=== PATIENT | male | born 1970 | race African-American/Black ===

== ENCOUNTER 2016-10-03 14:19 | Inpatient (IN) | payer OTHER ==
--- NOTE | ~2016-10-03 | DS ---
Discharge Summary [facility] [address] [facility] [place]. [address] NAME: JOSSY LUO : 66 STATUS : DIS IN PAT#: [id number] AGE: 46 ADM/REG DATE : 10/03/16 MR#: [id number] REPORT SERV DATE: 10/27/16 DICTATED BY: KEY BROWNLEE DATE: 10/26/16 REPORT STATUS : Draft TRANSCRIBED BY: MODKorin DATE: 10/26/16 Data Collection from hospitalization DISCHARGE DIAGNOSES: 1. Abdominal pain. 2. Ischemic bowel status post ileum resection. 3. End-stage renal disease. 4. Rheumatoid arthritis. 5. Hypertension. 6. Seizure disorder. 7. History of failed kidney transplant. CONSULTATION: Dr. Sang Ojeda III. PROCEDURES PERFORMED: 1. Exploratory laparotomy and fluorescein/Wood lamp angiography, resection 30 cm of jejunum, 10/04/2016. 2. CT scan of the abdomen and pelvis without contrast, 10/03/2016. 3. CTA of the abdomen and pelvis, 10/04/2016. 4. CT scan of the abdomen without contrast, 10/12/2016. PATHOLOGY: Small bowel jejunum segmental resection-multiple noncontiguous areas of ischemic necrosis. Two lymph nodes-edematous with no hyperplasia or granuloma. DISCHARGE MEDICATION: Zyloprim 100 mg daily, Norvasc 10 mg daily, Ecotrin 325 mg daily, PhosLo 1334 mg with meals, Catapres 0.2 mg twice a day, Lomotil 2.5 mg three times a day as needed, hydralazine 100 mg twice a day, Kent 5/325 one to two tablets every six hours as needed, Zestril 40 mg daily, Percocet one tablet three times a day as needed, Protonix 40 mg daily. CONDITION AT DISCHARGE: Stable. DISPOSITION: The patient was discharged home on a renal low-residue diet with activities as instructed. He would follow up with me if needed. He would follow up for hemodialysis Tuesday as scheduled. HOSPITAL COURSE: This is a 46-year-old man, who has end-stage renal disease and dialyzes on Mondays, Wednesdays, and Fridays. He has a history of juvenile rheumatoid arthritis, FSGS, chronic immune suppression with failed renal transplant. He has a history of ischemic colitis with juvenile infarction and jejunostomy by Dr. Sang Ojeda in 2015. He presented to the hospital initially with nausea and vomiting, which began Tuesday prior to admission, over one week ago. He said that he had been vomiting approximately four times a day and having diarrhea approximately three times per day. On the day of this admission, he began running fevers up to 102 at home and then developed abdominal pain. He therefore presented to the emergency department. In the emergency department, his CT scan of the abdomen reveals finding of diffusely thickened segment of jejunum with stranding in the mesentery suspicious for Crohn disease. Procalcitonin level was elevated at 2.9. He was admitted to the hospital at this time for further evaluation and treatment. Discharge Summary [id number] [place]. [address] NAME: JOSSY LUO : 66 STATUS : DIS IN PAT#: [id number] AGE: 46 ADM/REG DATE : 10/03/16 MR#: [id number] REPORT SERV DATE: 10/27/16 DICTATED BY: KEY BROWNLEE DATE: 10/26/16 REPORT STATUS : Draft TRANSCRIBED BY: ANNETTA DATE: 10/26/16 Upon admission, he was placed in the IMCU. IV antibiotics, pain, and nausea medications were provided. A surgical consult was requested. Dialysis would be performed if stable per his routine. The following day, he was seen by Dr. Sang Ojeda III. The patient had a one-week history of progressive abdominal pain with nausea, vomiting, and persistent unbearable abdominal pain in the middle of his abdomen. He said he had had a small bowel movement about two days prior to this admission. His pain was requiring large amounts of narcotics for control. His CT scans were reviewed. It was felt that the patient had an acute surgical abdomen, probably related to ischemic bowel disease versus a small closed loop obstruction, although segmental ischemia like he had in the past was the most likely etiology. Treatment options were discussed and it was elected to proceed with surgical intervention. He also had a CTA of the abdomen and pelvis performed. He was taken to the operating room by Dr. Sang Ojeda III, where he underwent the above-mentioned procedure. He tolerated this well and there were no complications. On postop day one, he was in moderate distress secondary to pain. He had some rhonchi in his lungs without dyspnea. One of two blood cultures revealed gram-positive cocci. Vancomycin was added. Pain medications were adjusted. IV fluids were adjusted. Flagyl and Levaquin were continued. On the , he had no dyspnea. His abdomen was soft. He did have some distention. Magnesium supplementation was given. He was transfused two units of packed red blood cells. Levaquin was changed to cefepime. Supportive care continued. He was passing flatus. He did have an ileus, which was felt to be resolving. Hemoglobin had increased after his transfusion. He had minimal NG tube output. Liquids were started. Subcutaneous heparin was being provided. The NG tube was removed. On the , he continued to do well. He complained of loose stools. He was now off antibiotics. Hemodialysis therapy continued. On 10/09/2016, he continued to do well. He was evaluated by Occupational and Physical Therapy. His diarrhea had resolved. Pathology results were reviewed. On the , he had the sudden onset of abdominal pain that was severe. He was finally relieved with medication. He was still passing flatus. CT scan of the abdomen without contrast was performed. Discharge planning was started. He continued to undergo hemodialysis. He had been moved to the MICU because of his abdominal pain. His CT scan had suggested small bowel obstruction. C difficile study had been negative. On 10/13/2016, he said he felt well. He was eating okay. He did have a bowel movement. He was going to be transferred to the floor. He was evaluated by Physical Therapy. The next day, discharge planning continued. He had no complaints of pain. He still had some diarrhea. He was tolerating oral intake. On 10/15/2016, he had no nausea, vomiting, or abdominal pain. He had no edema. Discharge instructions were given. Due to his improved and stable condition, he was discharged home with the above-stated instructions. Information collected by: Magdalena Noel I submit the above information as my discharge summary. LAURIE/ANNETTA Key Brownlee M.D. Discharge Summary [address] [address] NAME: JOSSY LUO : 66 STATUS : DIS IN PAT#: [id number] AGE: 46 ADM/REG DATE : 10/03/16 MR#: [id number] REPORT SERV DATE: 10/27/16 DICTATED BY: KEY BROWNLEE DATE: 10/26/16 REPORT STATUS : Draft TRANSCRIBED BY: ANNETTA DATE: 10/26/16 / [id number] CC: MD Sang Cagle III, M.D.
--- NOTE | ~2016-10-03 | HP ---
History And Physical [address] [place]. [address] NAME: JOSSY LUO : 66 STATUS : ADM IN [facility]#: [id number] AGE: 46 ADM/REG DATE : 10/03/16 MR#: [id number] REPORT SERV DATE: 10/03/16 DICTATED BY: DATE: REPORT STATUS : Draft TRANSCRIBED BY: MODL DATE: 10/03/16 DATE OF ADMISSION: 10/03/2016 CHIEF COMPLAINT: Nausea, vomiting, fever, and abdominal pain. HISTORY OF PRESENT ILLNESS: Mr. Luo is a 46-year-old black male with end-stage renal disease, dialyzes at [facility] 3rd Tuesday, Tuesday, and Tuesday, history of juvenile rheumatoid arthritis, FSGS, chronic immune suppression with failed treat renal transplant. He also has a history of ischemic colitis with juvenile infarction and jejunostomy by Dr. Sang Ojeda, in 2014. He presents to the hospital with initially nausea and vomiting. This started last Tuesday, that is over one week ago. He states he has been vomiting approximately four times a day, diarrhea approximately three times a day, and then, this has all been ongoing. Today, he began running fevers up to 102 at home and developed abdominal pain, therefore presented to the emergency department. In the emergency department, his CT of the abdomen has findings of diffusely thickened segment of jejunum with stranding in the mesentery suspicious for Crohn disease, and he has no white blood cell count elevation, procalcitonin is elevated at 2.9. On physical exam, his abdominal pain tenderness is significant. It is not rigid. He has active bowel sounds. He is tachycardic, hypertensive, and he is going to be admitted for further evaluation. PAST MEDICAL HISTORY: Juvenile rheumatoid arthritis, FSGS, end-stage renal disease, hypertension, seizure disorder, failed kidney transplant. FAMILY MEDICAL HISTORY: No end-stage renal disease. ALLERGIES: NONE. SOCIAL HISTORY: He is . No tobacco, alcohol, or illicit drug use. MEDICATIONS: Please see medication reconciliation list. It has been reviewed. REVIEW OF SYSTEMS: A 12-point review of systems obtained, negative with exception of that in the HPI. PHYSICAL EXAMINATION: VITAL SIGNS: Temp 98.4, blood pressure of 221/107, his pulse is in the 110s, respiratory rate 16, O2 saturation is 99%. GENERAL: This is an ill-appearing black male. He is awake, alert, and oriented, answers questions appropriately. HEENT: Normocephalic and atraumatic. Conjunctivae clear. Sclerae anicteric. Oral mucosa is moist. NECK: Supple. Carotids are brisk. Neck veins flat. No lymphadenopathy. LUNGS: Respirations are even and unlabored. Breath sounds clear to auscultation. HEART: Rate is regular but increased. History And Physical [address] [address] NAME: JOSSY LUO : 66 STATUS : ADM IN [facility]#: [id number] AGE: 46 ADM/REG DATE : 10/03/16 MR#: [id number] REPORT SERV DATE: 10/03/16 DICTATED BY: DATE: REPORT STATUS : Draft TRANSCRIBED BY: MODL DATE: 10/03/16 ABDOMEN: Soft, with hyperactive bowel sounds. Significant tenderness across the upper abdomen. No CVA tenderness. BACK: Within normal limits. EXTREMITIES: No edema, cyanosis, or clubbing. SKIN: Warm, dry, and intact. No unusual rashes or skin lesions. He has joint findings from his rheumatoid arthritis. NEURO EXAM: Generalized weakness. No focal deficits. Mood and affect; he is anxious but appropriate. PERTINENT LABS AND X-RAYS: Sodium 143, potassium 4.9, chloride 104, CO2 of 28, BUN of 33, creatinine of . LFTs are unremarkable. Albumin of 3.2. WBC 6.4, H and H 9 and 28, platelets 109,000. CT of the abdomen findings consistent with colitis. IMPRESSION: 1. Colitis. 2. Fever. 3. Accelerated hypertension. 4. End-stage renal disease. 5. Juvenile rheumatoid arthritis. 6. Focal segmental glomerulosclerosis. 7. Chronic immune suppression. 8. Failed renal transplant. 9. History of ischemic bowel with jejunal infarction. PLAN: I am going to admit him to the IMCU. IV antibiotics, pain, and nausea medicine. Surgical consult. Dialysis if stable in a.m. per routine. Further orders and recommendations pending clinical course. GLEN/MODL REBECCA Abrams / [id number] CC: Rafa Shaw MD
--- NOTE | ~2016-10-03 | OP ---
Record Of Operation [facility] [address] [place]. [address] NAME: JOSSY LUO : 66 STATUS : ADM IN PAT#: [id number] AGE: 46 ADM/REG DATE : 10/03/16 MR#: [id number] REPORT SERV DATE: 10/05/16 DICTATED BY: TOMI OJEDA III DATE: 10/04/16 REPORT STATUS : Draft TRANSCRIBED BY: MODL DATE: 10/04/16 DATE OF PROCEDURE: 10/04/2016 PREOPERATIVE DIAGNOSIS: Ischemic bowel disease with symptomatic changes and segmental abnormality seen on the CT scan and CTA scan consistent with this process. The patient has a history of a prior similar episode in the jejunum two years ago in 03/2015. OPERATIVE DIAGNOSIS: Ischemic bowel disease with symptomatic changes and segmental abnormality seen on the CT scan and CTA scan consistent with this process. The patient has a history of a prior similar episode in the jejunum two years ago in 03/2015 with finding of segmental multiple areas of ischemic change in the terminal ileum that required resection. ANESTHESIA: General with endotracheal tube. SURGEON: Tomi Ojeda M.D., FACS. SWITCH MAKER: Hortencia Ojeda RN, PULVERIZER OPERATOR. ESTIMATED BLOOD LOSS: 50 mL. PROCEDURE: The procedure went as follows: Time-out was called. The patient entered the room and no discrepancies in procedure or plans encountered. The patient was then prepped and draped in routine fashion. A midline incision ellipsing out on old keloid from the midline incision of the upper portion was accomplished. The abdomen was then entered and several small hernias encountered during dissection with fascial defects that were relatively small, 1 to 2 cm size. The abdomen was opened and extensive adhesio-enterolysis carried out to free up the anterior abdominal wall. A large protracted was then placed in the peritoneal cavity. Extensive adhesio-enterolysis was carried out over two-hour period of time taking down many adhesions freeing up potential internal hernias that were encountered. The previous bowel anastomosis just beyond the ligament of Treitz was identified and the bowel carefully run from this point distally taking down numerous adhesions. The bowel was so distorted and adhered, it was necessary to do extensive adhesio-enterolysis to determine what part of bowel had any defect in it. The bowel was then run and dissection of subtle cyanotic changes were noted in the bowel that was just prior to the terminal ileum. The cecum and appendix were unremarkable. The bowel was identified and 3-0 silk sutures placed on the delineation of the abnormal bowel, which was boggy, thick walled, and cyanotic. There was some minimal peristalsis in the bowel, but the mesentery and bowel wall were very edematous. The decision was made to do a fluorescein angiography to assess the microvascularity of the bowel. An amp of fluorescein dye was given IV push and wood's lamp used after five minutes of circulation. The bowel was then run from the ligament of Treitz to the terminal ileum Record Of Operation [facility] [address] [facility] [place]. [address] NAME: JOSSY LUO : 66 STATUS : ADM IN PAT#: [id number] AGE: 46 ADM/REG DATE : 10/03/16 MR#: [id number] REPORT SERV DATE: 10/05/16 DICTATED BY: TOMI OJEDA III DATE: 10/04/16 REPORT STATUS : Draft TRANSCRIBED BY: ANNETTA DATE: 10/04/16 especially looking at the area of the marked abnormal gross bowel. There were a number of spotty areas of black avascularity identified and these were clearly within the marked sutures that marked the gross abnormal bowel. Obvious avascular spots were seen circumferentially in the bowel, which was not perforated, but clearly abnormal. Decision was made to resect the bowel that was clearly avascular on fluorescein evaluation. A ligature was then used to divide the mesentery of the terminal ileum using stick ties of 3 0 silk on the larger vessels. The small bowel was then divided in the appropriate fashion with a IRENE 75. The back wall was placed with 3-0 silks Lembert's fashion. The antimesenteric nipples of the closed staple end of the small bowel were then trimmed away and the IRENE 75 placed in this opening and passed the entire length of the stapling device. This had already been reinforced on the back wall with the Lembert silk sutures. IRENE 75 was fired. After this was done, a TA 60 was used to close the entry points of the enterotomies for the anastomosis. All staple lines were then inverted with Lembert sutures of 3-0 silk with a good wide anastomotic opening appreciated. The mesenteric defect was closed with running suture of 3- 0 Vicryl on both sides of the mesentery. The patulous portion of the anastomosis that was side to side, functional end-to-end anastomosis was sutured down to the mesentery with multiple sutures of 3-0 silk to make a more straight pathway from the small bowel down to the terminal ileum and cecum. After this was done, the bowel was run from this anastomosis proximally all the way back to the ligament of Treitz and no other abnormalities appreciated. Fluorescein evaluation had confirmed that there was good vascularity without skipping areas as seen in the resected bowel and all the proximal bowel. After this was done, the area was irrigated with copious amounts of normal saline. The abdomen was closed with a running suture of looped #1 PDS full-thickness single-layer closure encompassing the peritoneum, posterior fascia, and anterior fascia. After this was done, the subcutaneous tissue was closed with interrupted 3-0 Vicryl. The skin was closed with a skin gun and the procedure concluded. The wound was dressed with an Acticoat Flex dressing material and the procedure ended sending the patient back to the intensive care unit in satisfactory condition. A pathologic consultation with Dr. Manuel Mendoza was obtained during the operation and the gross specimen opened was consistent with ulcerations and ischemic changes in the bowel wall with erosion through the mucosa, but not the serosa or partial muscularis erosion only. PROCEDURE: Exploratory laparotomy with intraoperative angiography with extensive adhesio- enterolysis of approximately two hours followed by resection of 30 cm of the terminal ileum with an end-to-end jejunojejunostomy anastomosis. Record Of Operation [address] [address] NAME: JOSSY LUO : 66 STATUS : ADM IN PAT#: [id number] AGE: 46 ADM/REG DATE : 10/03/16 MR#: [id number] REPORT SERV DATE: 10/05/16 DICTATED BY: TOMI OJEDA III DATE: 10/04/16 REPORT STATUS : Draft TRANSCRIBED BY: ANNETTA DATE: 10/04/16 DANNY/ANNETTA Tomi Ojeda III, M.D. / [id number] CC: MD Vince Cagle M.D. Mandeep Grewal, M.D.
--- NOTE | ~2016-10-03 | CN ---
Consultation Report [facility] [address] [place]. [address] NAME: JOSSY LUO : 66 STATUS : ADM IN PAT#: [id number] AGE: 46 ADM/REG DATE : 10/03/16 MR#: [id number] REPORT SERV DATE: 10/04/16 DICTATED BY: TOMI OJEDA III DATE: 10/04/16 REPORT STATUS : Draft TRANSCRIBED BY: MODKorin DATE: 10/04/16 CONSULTATION DATE OF CONSULTATION: 10/04/2016 HISTORY OF PRESENT ILLNESS: The patient is a 46-year-old gentleman with a long history of hemodialysis known to me from a surgery for ischemic segmental jejunal disease back in 2014. He now presents with a one-week history of progressive abdominal pain with nausea, vomiting, and persistent unbearable abdominal pain in the middle of his abdomen. He said he had a bowel movement that was small about two days ago, on Tuesday. The patient's pain has been requiring large amounts of narcotics for control. PAST MEDICAL HISTORY: The patient has history of seizures, hypertension, severe rheumatoid arthritis, history of C diff colitis in the past, history of previous abdominal surgery including an ileocolectomy with anastomosis, history of colitis, history of segmental ischemic disease. He has end-stage renal disease and had a kidney transplant in 2003. The patient's kidney transplant has failed. ALLERGIES: THE PATIENT HAS NO KNOWN ALLERGIES. SOCIAL HISTORY: He is . Denies alcohol, tobacco, or illegal drugs. MEDICATIONS: He is on numerous medications including Zyloprim; Norvasc; Ecotrin; PhosLo; Catapres; hydralazine; Zestril; Percocet, which he takes 10/325 three times a day p.r.n.; and Protonix 40 mg daily. REVIEW OF SYSTEMS: Review of systems is consistent with some weight loss, minimal amount, and severe rheumatoid changes. PHYSICAL EXAMINATION: GENERAL: He is an ill-appearing, male, fairly significant distress with abdominal pain requiring severe or large doses of narcotics. He is oriented x3. HEENT: Unremarkable. NECK: Supple with decreased range of motion. CHEST: Poor inspiratory effort. HEART: Regular rate and rhythm. ABDOMEN: Exquisitely tender in the mid area with rebound, high-pitched hypoactive bowel sounds were noted. There was no CVA tenderness. EXTREMITIES: Grossly arthritic and distorted. LABORATORY DATA: The patient's lab work has been reviewed and is not diagnostic, but certainly has a low albumin of 3.2. White count on admission 6.4; hemoglobin and hematocrit 9 and 28; platelet count was a 109,000 on admission, but had dropped down to 38,000 this Consultation Report [address] [place]. [address] NAME: JOSSY LUO : 66 STATUS : ADM IN PAT#: [id number] AGE: 46 ADM/REG DATE : 10/03/16 MR#: [id number] REPORT SERV DATE: 10/04/16 DICTATED BY: TOMI OJEDA III DATE: 10/04/16 REPORT STATUS : Draft TRANSCRIBED BY: ANNETTA DATE: 10/04/16 morning. Liver function tests are unremarkable. CT scans reviewed with and without contrast with Dr. Dania Fitzpatrick, the radiologist, and no obstructing lesions and the takeoffs of the celiac, superior mesenteric, or inferior mesenteric arteries were noted. There is a peculiar area in the central portion of the abdomen that is likely jejunum that is suspicious for pathology with enhancement of the mesenteric vessels without high-grade stenosis, but the thickening of the loop of jejunum in the mid lower abdomen on the left with edema in adjacent mesentery are compatible with focal enteritis possibly related to inflammatory bowel disease. Certainly ischemic bowel disease should be strongly considered. These films were reviewed including the noncontrasted study, which is consistent with findings as above. IMPRESSION: The patient has an acute surgical abdomen probably related to ischemic bowel disease versus a small closed loop obstruction, although segmental ischemia like he had in the past is most likely the etiology. I have recommended exploration with resection of bowel as indicated to the patient and discussed the risks with him. He understands that he could have breakdown anastomosis, further ischemic disease, further herniation, which is clearly consistent with the findings of his abdomen, which is extremely distorted with very thin areas consistent with a diffuse hernia versus just atrophic abdominal wall. Bleeding with his low platelet count as well as infection and need for recurrent surgery as well as the anesthesia risk and potential for with or without surgery. RB/ANNETTA Tomi Ojeda III, M.D. / [id number] CC: MD Leonardo Cagle M.D.
[2016-10-03 14:15] LABS: BASOPHILS 0.2 %; BASOPHILS ABSOLUTE 0.01 10/3/uL (0.0-0.16); EOSINOPHILS 4.3 %; EOSINOPHILS ABSOLUTE 0.28 10/3/uL (0.0-0.53); IMMATURE GRANULOCYTES 0.3 %; IMMATURE GRANULOCYTES ABSOLUTE 0.02 10/3/uL (0.0-0.11); LYMPHOCYTES ABSOLUTE 0.78 10/3/uL (0.67-4.30); MEAN CORPUS HGB CONC 32.6 g/dL (32.0-36.0); MEAN CORPUSCULAR VOLUME 85.8 fL (80-100); MONOCYTES 4.2 %; MONOCYTES ABSOLUTE 0.27 10/3/uL (0.21-1.20); NEUTROPHILS ABSOLUTE 5.14 10/3/uL (2.02-8.40); PLATELET COUNT 109 10/3/uL (150-400); RBC DISTRIBUTION WIDTH 16.7 % (12.0-16.0)
[~2016-10-03 14:19] MED LIST: 8 HOUR650 MG PO; AMB5 PO; APRES50 PO; ASA5GR PO; ASABAYER PO; BENTYL10 PO; CAT1 PO; CAT2 PO; ENDOCET1 TA3 PO; FLORASTOR250 MG PO; HYDRALAZINE100 MG PO; HYT2 PO; KEPPRA500 PO; LIDO5OINT TOP; LIDOCAINE 2% JELLY TOP; LISINOPRIL40 MG PO; LOP50 PO; MYLICON DROPS PO; NITROSTAT0.4 MG SL; NORV10 PO; NORV5 PO; PERCOCET1 TA4 PO; PR25 PO; PRILO PO; PROTONIX PO; SENSIPAR30 MG PO; SUCR PO; VANCOCIN HCL125 MG PO; Z100 PO; ZESTRIL40 MG PO
[2016-10-03 14:23] LABS: ER CBC TAT 0 Hrs 13 Mins; HEMATOCRIT 28.5 % (40.0-51.0); HEMOGLOBIN 9.3 g/dL (13.6-17.8); MANUAL DIFF NO %; RED CELL COUNT 3.32 10/6/uL (4.7-6.1); WHITE BLOOD CELLS 6.5 10/3/uL (4.5-10.5)
[2016-10-03 14:29] LABS: A/G RATIO 0.8 (0.7-1.9); ALBUMIN 3.2 G/DL (3.5-5.0); CHLORIDE, SERUM 104 MMOL/L (96-112); CO2 (CARBON DIOXIDE) 28 MMOL/L (24-34); GLOBULIN 3.8 G/DL (2.5-4.1); GLUCOSE, SERUM 81 MG/DL (60-99); SGPT(ALT) 7 U/L (5-65); TOTAL BILIRUBIN 0.5 MG/DL (0-1.2)
[2016-10-03 14:31] LABS: ALKALINE PHOSPHATASE 103 U/L (45-117); BUN (BLOOD UREA NITROGEN) 33 MG/DL (6-23); CALCIUM, SERUM 8.9 MG/DL (8.5-10.4); CREATININE 9.65 MG/DL (0.70-1.30); GFR AFRICAN AMERICAN 7 ML/MIN (>=60); GFR NON AFRICAN AMERICAN 6 ML/MIN (>=60); POTASSIUM, SERUM 4.9 MMOL/L (3.5-5.3); SGOT(AST) 17 U/L (5-40); SODIUM, SERUM 143 MMOL/L (135-148)
[2016-10-03 14:33] LABS: PLATELET ESTIMATE SLT DEC (ADEQUATE); RBC MORPHOLOGY NORM (NORMAL)
[2016-10-03 14:57] LABS: PROCALCITONIN 2.94 ng/mL (<0.5)
[2016-10-03] MEDS ORDERED: ZESTRIL40 MG PO (15:24)
[2016-10-03] MEDS ORDERED: Z100 PO (15:24)
[2016-10-03] MEDS ORDERED: PERCOCET 10/3251 TAB PO (15:25)
[2016-10-03] MEDS ORDERED: PHOSLO PO (15:25)
[2016-10-03] MEDS ORDERED: HYDRALAZINE100 MG PO (15:25)
[2016-10-03] MEDS ORDERED: ASAEC PO (15:25)
[2016-10-03] MEDS ORDERED: PROTONIX PO (15:26)
[2016-10-03] MEDS ORDERED: CAT2 PO (15:26)
[2016-10-03] MEDS ORDERED: NORV10 PO (15:26)
[2016-10-03 16:03] LABS: LACTATE 0.4 MMOL/L (0.3-2.4)
[2016-10-04 04:28] LABS: BASOPHILS 0 %; EOSINOPHILS 3.2 %; EOSINOPHILS ABSOLUTE 0.18 10/3/uL (0.0-0.53); HEMATOCRIT 25.8 % (40.0-51.0); HEMOGLOBIN 8.1 g/dL (13.6-17.8); IMMATURE GRANULOCYTES 0.2 %; IMMATURE GRANULOCYTES ABSOLUTE 0.01 10/3/uL (0.0-0.11); LYMPHOCYTES ABSOLUTE 0.74 10/3/uL (0.67-4.30); MEAN CORPUS HGB CONC 31.4 g/dL (32.0-36.0); MEAN CORPUSCULAR HEMOGLOB 27.5 pg (26.0-34.0); MEAN CORPUSCULAR VOLUME 87.5 fL (80-100); MEAN PLATELET VOLUME 10.2 fL (9.2-13.0); MONOCYTES 5.1 %; MONOCYTES ABSOLUTE 0.29 10/3/uL (0.21-1.20); NEUTROPHILS 78.5 %; NEUTROPHILS ABSOLUTE 4.46 10/3/uL (2.02-8.40); PLATELET COUNT 88 10/3/uL (150-400); RBC DISTRIBUTION WIDTH 16.9 % (12.0-16.0); RED CELL COUNT 2.95 10/6/uL (4.7-6.1); WHITE BLOOD CELLS 5.7 10/3/uL (4.5-10.5)
[2016-10-04 04:38] LABS: A/G RATIO 0.8 (0.7-1.9); ALBUMIN 2.8 G/DL (3.5-5.0); ALKALINE PHOSPHATASE 96 U/L (45-117); CALCIUM, SERUM 8.8 MG/DL (8.5-10.4); CHLORIDE, SERUM 105 MMOL/L (96-112); CO2 (CARBON DIOXIDE) 25 MMOL/L (24-34); GLOBULIN 3.6 G/DL (2.5-4.1); GLUCOSE, SERUM 77 MG/DL (60-99); POTASSIUM, SERUM 5.2 MMOL/L (3.5-5.3); SGOT(AST) 6 U/L (5-40); SODIUM, SERUM 142 MMOL/L (135-148); TOTAL BILIRUBIN 0.4 MG/DL (0-1.2); TOTAL PROTEIN 6.4 G/DL (6.0-8.5)
[2016-10-04 04:40] LABS: MANUAL DIFF NO %
[2016-10-04 04:44] LABS: BUN (BLOOD UREA NITROGEN) 40 MG/DL (6-23); GFR AFRICAN AMERICAN 6 ML/MIN (>=60); GFR NON AFRICAN AMERICAN 5 ML/MIN (>=60); SGPT(ALT) < 6 U/L (5-65)
[2016-10-04 04:54] LABS: PLATELET ESTIMATE DEC (ADEQUATE)
[2016-10-04 04:55] LABS: RBC MORPHOLOGY NORM (NORMAL)
[2016-10-04 06:37] LABS: PROCALCITONIN 3.16 ng/mL (<0.5)
[2016-10-05 09:01] LABS: BASOPHILS 0 %; EOSINOPHILS 0 %; HEMOGLOBIN 8.8 g/dL (13.6-17.8); IMMATURE GRANULOCYTES 0.2 %; IMMATURE GRANULOCYTES ABSOLUTE 0.02 10/3/uL (0.0-0.11); LYMPHOCYTES 4.2 %; LYMPHOCYTES ABSOLUTE 0.39 10/3/uL (0.67-4.30); MEAN CORPUS HGB CONC 31.4 g/dL (32.0-36.0); MEAN CORPUSCULAR HEMOGLOB 27.8 pg (26.0-34.0); MEAN CORPUSCULAR VOLUME 88.3 fL (80-100); MONOCYTES ABSOLUTE 0.46 10/3/uL (0.21-1.20); NEUTROPHILS 90.6 %; NEUTROPHILS ABSOLUTE 8.35 10/3/uL (2.02-8.40); PLATELET COUNT 109 10/3/uL (150-400); RBC DISTRIBUTION WIDTH 17.6 % (12.0-16.0); RED CELL COUNT 3.17 10/6/uL (4.7-6.1)
[2016-10-05 09:08] LABS: MANUAL DIFF NO %; WHITE BLOOD CELLS 9.2 10/3/uL (4.5-10.5)
[2016-10-05 09:17] LABS: A/G RATIO 0.8 (0.7-1.9); ALKALINE PHOSPHATASE 88 U/L (45-117); BUN (BLOOD UREA NITROGEN) 22 MG/DL (6-23); CALCIUM, SERUM 8.6 MG/DL (8.5-10.4); CHLORIDE, SERUM 108 MMOL/L (96-112); CO2 (CARBON DIOXIDE) 27 MMOL/L (24-34); GFR AFRICAN AMERICAN 10 ML/MIN (>=60); GFR NON AFRICAN AMERICAN 9 ML/MIN (>=60); GLOBULIN 3.8 G/DL (2.5-4.1); GLUCOSE, SERUM 140 MG/DL (60-99); PHOSPHORUS, SERUM 4.9 MG/DL (2.5-4.5); POTASSIUM, SERUM 4.6 MMOL/L (3.5-5.3); SGOT(AST) 5 U/L (5-40); SGPT(ALT) 7 U/L (5-65); SODIUM, SERUM 144 MMOL/L (135-148); TOTAL BILIRUBIN 0.7 MG/DL (0-1.2); TOTAL PROTEIN 6.8 G/DL (6.0-8.5)
[2016-10-05 09:19] LABS: ANISOCYTOSIS 1+ (5-10/OIF) (0-5/OIF); PLATELET ESTIMATE SLT DEC (ADEQUATE)
[2016-10-05 09:20] LABS: HELMET CELLS OCC (0-2/OIF); MACROCYTES 1+ (5-10/OIF) (0-5/OIF); POIKILOCYTOSIS 1+ (5-10/OIF) (0-5/OIF); SCHISTOCYTES OCC (0-2/OIF)
[2016-10-05 09:21] LABS: GIANT PLATELET RARE
[2016-10-06 04:34] LABS: BASOPHILS 0 %; EOSINOPHILS 2.4 %; HEMOGLOBIN 7.2 g/dL (13.6-17.8); IMMATURE GRANULOCYTES 0.2 %; IMMATURE GRANULOCYTES ABSOLUTE 0.01 10/3/uL (0.0-0.11); LYMPHOCYTES 15.7 %; LYMPHOCYTES ABSOLUTE 0.66 10/3/uL (0.67-4.30); MEAN CORPUS HGB CONC 31.2 g/dL (32.0-36.0); MEAN CORPUSCULAR HEMOGLOB 27.8 pg (26.0-34.0); MEAN CORPUSCULAR VOLUME 89.2 fL (80-100); MEAN PLATELET VOLUME 10.2 fL (9.2-13.0); MONOCYTES 7.9 %; MONOCYTES ABSOLUTE 0.33 10/3/uL (0.21-1.20); NEUTROPHILS 73.8 %; PLATELET COUNT 83 10/3/uL (150-400); RBC DISTRIBUTION WIDTH 17.8 % (12.0-16.0); RED CELL COUNT 2.59 10/6/uL (4.7-6.1)
[2016-10-06 04:37] LABS: HEMATOCRIT 23.1 % (40.0-51.0); MANUAL DIFF NO %; WHITE BLOOD CELLS 4.2 10/3/uL (4.5-10.5)
[2016-10-06 04:44] LABS: ALBUMIN 2.5 G/DL (3.5-5.0); BUN (BLOOD UREA NITROGEN) 25 MG/DL (6-23); CALCIUM, SERUM 8.1 MG/DL (8.5-10.4); CHLORIDE, SERUM 110 MMOL/L (96-112); CO2 (CARBON DIOXIDE) 25 MMOL/L (24-34); CREATININE 8.43 MG/DL (0.70-1.30); GFR AFRICAN AMERICAN 8 ML/MIN (>=60); GFR NON AFRICAN AMERICAN 7 ML/MIN (>=60); GLUCOSE, SERUM 108 MG/DL (60-99); PHOSPHORUS, SERUM 4.3 MG/DL (2.5-4.5); POTASSIUM, SERUM 4.3 MMOL/L (3.5-5.3); SODIUM, SERUM 145 MMOL/L (135-148)
[2016-10-06 05:57] LABS: PLATELET ESTIMATE DEC (ADEQUATE)
[2016-10-06 05:58] LABS: ANISOCYTOSIS 1+ (5-10/OIF) (0-5/OIF); TEARDROP SHAPED RBCS OCC (0-2/OIF)
[2016-10-07 04:06] LABS: BASOPHILS 0.2 %; BASOPHILS ABSOLUTE 0.01 10/3/uL (0.0-0.16); EOSINOPHILS 9.5 %; EOSINOPHILS ABSOLUTE 0.48 10/3/uL (0.0-0.53); HEMOGLOBIN 9.5 g/dL (13.6-17.8); IMMATURE GRANULOCYTES 0.6 %; IMMATURE GRANULOCYTES ABSOLUTE 0.03 10/3/uL (0.0-0.11); LYMPHOCYTES 15.1 %; LYMPHOCYTES ABSOLUTE 0.76 10/3/uL (0.67-4.30); MEAN CORPUS HGB CONC 31.7 g/dL (32.0-36.0); MEAN CORPUSCULAR HEMOGLOB 27.1 pg (26.0-34.0); MEAN CORPUSCULAR VOLUME 85.5 fL (80-100); MEAN PLATELET VOLUME 11.1 fL (9.2-13.0); MONOCYTES 4.6 %; MONOCYTES ABSOLUTE 0.23 10/3/uL (0.21-1.20); NEUTROPHILS ABSOLUTE 3.52 10/3/uL (2.02-8.40); PLATELET COUNT 93 10/3/uL (150-400); RBC DISTRIBUTION WIDTH 19.3 % (12.0-16.0); RED CELL COUNT 3.51 10/6/uL (4.7-6.1)
[2016-10-07 04:07] LABS: MANUAL DIFF NO %
[2016-10-07 04:17] LABS: ALBUMIN 2.6 G/DL (3.5-5.0); CALCIUM, SERUM 8.5 MG/DL (8.5-10.4); CHLORIDE, SERUM 111 MMOL/L (96-112); CO2 (CARBON DIOXIDE) 26 MMOL/L (24-34); GLUCOSE, SERUM 93 MG/DL (60-99); POTASSIUM, SERUM 4.3 MMOL/L (3.5-5.3); SODIUM, SERUM 146 MMOL/L (135-148)
[2016-10-07 04:18] LABS: BUN (BLOOD UREA NITROGEN) 14 MG/DL (6-23); CREATININE 5.76 MG/DL (0.70-1.30); GFR AFRICAN AMERICAN 12 ML/MIN (>=60); GFR NON AFRICAN AMERICAN 11 ML/MIN (>=60); PHOSPHORUS, SERUM 2.7 MG/DL (2.5-4.5)
[2016-10-07 04:33] LABS: ANISOCYTOSIS 1+ (5-10/OIF) (0-5/OIF); GIANT PLATELET FEW; PLATELET ESTIMATE DEC (ADEQUATE); RBC MORPHOLOGY ABN (NORMAL)
[2016-10-08 13:57] LABS: BASOPHILS 0.2 %; BASOPHILS ABSOLUTE 0.01 10/3/uL (0.0-0.16); EOSINOPHILS 18.2 %; EOSINOPHILS ABSOLUTE 0.82 10/3/uL (0.0-0.53); HEMATOCRIT 31.8 % (40.0-51.0); HEMOGLOBIN 10.3 g/dL (13.6-17.8); IMMATURE GRANULOCYTES 1.1 %; IMMATURE GRANULOCYTES ABSOLUTE 0.05 10/3/uL (0.0-0.11); LYMPHOCYTES 14.7 %; LYMPHOCYTES ABSOLUTE 0.66 10/3/uL (0.67-4.30); MEAN CORPUS HGB CONC 32.4 g/dL (32.0-36.0); MEAN CORPUSCULAR HEMOGLOB 27.3 pg (26.0-34.0); MEAN CORPUSCULAR VOLUME 84.4 fL (80-100); MEAN PLATELET VOLUME 10.4 fL (9.2-13.0); MONOCYTES ABSOLUTE 0.18 10/3/uL (0.21-1.20); NEUTROPHILS 61.8 %; NEUTROPHILS ABSOLUTE 2.78 10/3/uL (2.02-8.40); PLATELET COUNT 106 10/3/uL (150-400); RBC DISTRIBUTION WIDTH 17.6 % (12.0-16.0); RED CELL COUNT 3.77 10/6/uL (4.7-6.1); WHITE BLOOD CELLS 4.5 10/3/uL (4.5-10.5)
[2016-10-08 14:03] LABS: MANUAL DIFF NO %
[2016-10-08 14:10] LABS: ALBUMIN 2.6 G/DL (3.5-5.0); CALCIUM, SERUM 8.5 MG/DL (8.5-10.4); CHLORIDE, SERUM 106 MMOL/L (96-112); CO2 (CARBON DIOXIDE) 27 MMOL/L (24-34); GFR AFRICAN AMERICAN 8 ML/MIN (>=60); GFR NON AFRICAN AMERICAN 7 ML/MIN (>=60); GLUCOSE, SERUM 102 MG/DL (60-99); POTASSIUM, SERUM 4.3 MMOL/L (3.5-5.3); SODIUM, SERUM 142 MMOL/L (135-148)
[2016-10-08 14:11] LABS: BUN (BLOOD UREA NITROGEN) 22 MG/DL (6-23); CREATININE 8.49 MG/DL (0.70-1.30)
[2016-10-09 07:20] LABS: ALBUMIN 2.8 G/DL (3.5-5.0); BUN (BLOOD UREA NITROGEN) 13 MG/DL (6-23); CALCIUM, SERUM 8.7 MG/DL (8.5-10.4); CHLORIDE, SERUM 105 MMOL/L (96-112); CO2 (CARBON DIOXIDE) 27 MMOL/L (24-34); CREATININE 6.06 MG/DL (0.70-1.30); GFR AFRICAN AMERICAN 12 ML/MIN (>=60); GFR NON AFRICAN AMERICAN 10 ML/MIN (>=60); GLUCOSE, SERUM 97 MG/DL (60-99); PHOSPHORUS, SERUM 2.9 MG/DL (2.5-4.5); SODIUM, SERUM 139 MMOL/L (135-148)
[2016-10-09 07:46] LABS: BASOPHILS 0 %; EOSINOPHILS 19.4 %; EOSINOPHILS ABSOLUTE 1.04 10/3/uL (0.0-0.53); HEMATOCRIT 34.2 % (40.0-51.0); HEMOGLOBIN 11.2 g/dL (13.6-17.8); IMMATURE GRANULOCYTES 0.9 %; IMMATURE GRANULOCYTES ABSOLUTE 0.05 10/3/uL (0.0-0.11); LYMPHOCYTES 16.9 %; LYMPHOCYTES ABSOLUTE 0.91 10/3/uL (0.67-4.30); MANUAL DIFF NO %; MEAN CORPUS HGB CONC 32.7 g/dL (32.0-36.0); MEAN CORPUSCULAR HEMOGLOB 27.6 pg (26.0-34.0); MEAN CORPUSCULAR VOLUME 84.2 fL (80-100); MEAN PLATELET VOLUME 11.6 fL (9.2-13.0); MONOCYTES 5.8 %; MONOCYTES ABSOLUTE 0.31 10/3/uL (0.21-1.20); NEUTROPHILS ABSOLUTE 3.06 10/3/uL (2.02-8.40); PLATELET COUNT 148 10/3/uL (150-400); RBC DISTRIBUTION WIDTH 17.5 % (12.0-16.0); RED CELL COUNT 4.06 10/6/uL (4.7-6.1); WHITE BLOOD CELLS 5.4 10/3/uL (4.5-10.5)
[2016-10-10 06:30] LABS: ALBUMIN 2.9 G/DL (3.5-5.0); BUN (BLOOD UREA NITROGEN) 19 MG/DL (6-23); CHLORIDE, SERUM 104 MMOL/L (96-112); CO2 (CARBON DIOXIDE) 26 MMOL/L (24-34); CREATININE 8.29 MG/DL (0.70-1.30); GFR AFRICAN AMERICAN 8 ML/MIN (>=60); GFR NON AFRICAN AMERICAN 7 ML/MIN (>=60); GLUCOSE, SERUM 94 MG/DL (60-99); PHOSPHORUS, SERUM 3.6 MG/DL (2.5-4.5); POTASSIUM, SERUM 3.8 MMOL/L (3.5-5.3); SODIUM, SERUM 138 MMOL/L (135-148)
[2016-10-11 06:40] LABS: BASOPHILS 0 %; EOSINOPHILS 15.3 %; EOSINOPHILS ABSOLUTE 0.85 10/3/uL (0.0-0.53); HEMATOCRIT 33.5 % (40.0-51.0); HEMOGLOBIN 10.8 g/dL (13.6-17.8); IMMATURE GRANULOCYTES 0.7 %; IMMATURE GRANULOCYTES ABSOLUTE 0.04 10/3/uL (0.0-0.11); LYMPHOCYTES 18.9 %; LYMPHOCYTES ABSOLUTE 1.05 10/3/uL (0.67-4.30); MEAN CORPUS HGB CONC 32.2 g/dL (32.0-36.0); MEAN CORPUSCULAR VOLUME 83.8 fL (80-100); MEAN PLATELET VOLUME 11.2 fL (9.2-13.0); MONOCYTES 5.4 %; NEUTROPHILS 59.7 %; NEUTROPHILS ABSOLUTE 3.32 10/3/uL (2.02-8.40); PLATELET COUNT 153 10/3/uL (150-400); RBC DISTRIBUTION WIDTH 17.1 % (12.0-16.0); WHITE BLOOD CELLS 5.6 10/3/uL (4.5-10.5)
[2016-10-11 06:41] LABS: MANUAL DIFF NO %
[2016-10-11 06:54] LABS: ALBUMIN 2.7 G/DL (3.5-5.0); BUN (BLOOD UREA NITROGEN) 27 MG/DL (6-23); CALCIUM, SERUM 8.6 MG/DL (8.5-10.4); CHLORIDE, SERUM 103 MMOL/L (96-112); CO2 (CARBON DIOXIDE) 25 MMOL/L (24-34); GFR AFRICAN AMERICAN 6 ML/MIN (>=60); GFR NON AFRICAN AMERICAN 5 ML/MIN (>=60); GLUCOSE, SERUM 101 MG/DL (60-99); PHOSPHORUS, SERUM 4.6 MG/DL (2.5-4.5); POTASSIUM, SERUM 4.1 MMOL/L (3.5-5.3); SODIUM, SERUM 139 MMOL/L (135-148)
[2016-10-12 06:15] LABS: BASOPHILS 0.2 %; BASOPHILS ABSOLUTE 0.01 10/3/uL (0.0-0.16); EOSINOPHILS 11.8 %; EOSINOPHILS ABSOLUTE 0.66 10/3/uL (0.0-0.53); HEMATOCRIT 35.3 % (40.0-51.0); HEMOGLOBIN 11.3 g/dL (13.6-17.8); IMMATURE GRANULOCYTES 0.4 %; IMMATURE GRANULOCYTES ABSOLUTE 0.02 10/3/uL (0.0-0.11); LYMPHOCYTES ABSOLUTE 0.84 10/3/uL (0.67-4.30); MEAN CORPUSCULAR VOLUME 84.2 fL (80-100); MEAN PLATELET VOLUME 11.4 fL (9.2-13.0); MONOCYTES 5.7 %; MONOCYTES ABSOLUTE 0.32 10/3/uL (0.21-1.20); NEUTROPHILS 66.9 %; NEUTROPHILS ABSOLUTE 3.76 10/3/uL (2.02-8.40); PLATELET COUNT 154 10/3/uL (150-400); RBC DISTRIBUTION WIDTH 16.6 % (12.0-16.0); RED CELL COUNT 4.19 10/6/uL (4.7-6.1); WHITE BLOOD CELLS 5.6 10/3/uL (4.5-10.5)
[2016-10-12 06:17] LABS: MANUAL DIFF NO %
[2016-10-12 06:26] LABS: A/G RATIO 0.8 (0.7-1.9); ALBUMIN 2.8 G/DL (3.5-5.0); ALKALINE PHOSPHATASE 109 U/L (45-117); BUN (BLOOD UREA NITROGEN) 11 MG/DL (6-23); CALCIUM, SERUM 8.9 MG/DL (8.5-10.4); CHLORIDE, SERUM 104 MMOL/L (96-112); CO2 (CARBON DIOXIDE) 26 MMOL/L (24-34); CREATININE 6.24 MG/DL (0.70-1.30); GFR AFRICAN AMERICAN 11 ML/MIN (>=60); GFR NON AFRICAN AMERICAN 10 ML/MIN (>=60); GLOBULIN 3.7 G/DL (2.5-4.1); GLUCOSE, SERUM 94 MG/DL (60-99); POTASSIUM, SERUM 4.2 MMOL/L (3.5-5.3); SGOT(AST) 33 U/L (5-40); SGPT(ALT) 19 U/L (5-65); SODIUM, SERUM 138 MMOL/L (135-148); TOTAL BILIRUBIN 0.4 MG/DL (0-1.2); TOTAL PROTEIN 6.5 G/DL (6.0-8.5)
[2016-10-12 07:24] LABS: PLATELET ESTIMATE ADQ (ADEQUATE)
[2016-10-12 07:25] LABS: GIANT PLATELET OCC; POLYCHROMASIA 1+ (2-5/OIF) (0-1/OIF)
[2016-10-13 08:21] LABS: BASOPHILS 0.2 %; BASOPHILS ABSOLUTE 0.01 10/3/uL (0.0-0.16); EOSINOPHILS 10.8 %; EOSINOPHILS ABSOLUTE 0.58 10/3/uL (0.0-0.53); HEMATOCRIT 32.3 % (40.0-51.0); HEMOGLOBIN 10.5 g/dL (13.6-17.8); IMMATURE GRANULOCYTES 0.4 %; IMMATURE GRANULOCYTES ABSOLUTE 0.02 10/3/uL (0.0-0.11); LYMPHOCYTES 18.4 %; LYMPHOCYTES ABSOLUTE 0.99 10/3/uL (0.67-4.30); MEAN CORPUS HGB CONC 32.5 g/dL (32.0-36.0); MEAN CORPUSCULAR HEMOGLOB 27.2 pg (26.0-34.0); MEAN CORPUSCULAR VOLUME 83.7 fL (80-100); MEAN PLATELET VOLUME 11.1 fL (9.2-13.0); MONOCYTES 5.8 %; MONOCYTES ABSOLUTE 0.31 10/3/uL (0.21-1.20); NEUTROPHILS 64.4 %; NEUTROPHILS ABSOLUTE 3.48 10/3/uL (2.02-8.40); PLATELET COUNT 151 10/3/uL (150-400); RED CELL COUNT 3.86 10/6/uL (4.7-6.1); WHITE BLOOD CELLS 5.4 10/3/uL (4.5-10.5)
[2016-10-13 08:23] LABS: MANUAL DIFF NO %
[2016-10-13 08:40] LABS: ALBUMIN 2.9 G/DL (3.5-5.0); CALCIUM, SERUM 8.1 MG/DL (8.5-10.4); CHLORIDE, SERUM 104 MMOL/L (96-112); CO2 (CARBON DIOXIDE) 27 MMOL/L (24-34); GFR AFRICAN AMERICAN 8 ML/MIN (>=60); GFR NON AFRICAN AMERICAN 7 ML/MIN (>=60); GLUCOSE, SERUM 87 MG/DL (60-99); PHOSPHORUS, SERUM 5.5 MG/DL (2.5-4.5); POTASSIUM, SERUM 4.5 MMOL/L (3.5-5.3); SODIUM, SERUM 141 MMOL/L (135-148)
[2016-10-13 08:41] LABS: BUN (BLOOD UREA NITROGEN) 23 MG/DL (6-23); CREATININE 8.64 MG/DL (0.70-1.30)
[2016-10-14 05:34] LABS: BASOPHILS 0.2 %; BASOPHILS ABSOLUTE 0.01 10/3/uL (0.0-0.16); EOSINOPHILS 6.8 %; EOSINOPHILS ABSOLUTE 0.38 10/3/uL (0.0-0.53); HEMOGLOBIN 11.1 g/dL (13.6-17.8); IMMATURE GRANULOCYTES 0.4 %; IMMATURE GRANULOCYTES ABSOLUTE 0.02 10/3/uL (0.0-0.11); LYMPHOCYTES 19.8 %; MEAN CORPUS HGB CONC 32.6 g/dL (32.0-36.0); MEAN CORPUSCULAR HEMOGLOB 27.4 pg (26.0-34.0); MEAN PLATELET VOLUME 11.4 fL (9.2-13.0); MONOCYTES 8.6 %; MONOCYTES ABSOLUTE 0.48 10/3/uL (0.21-1.20); NEUTROPHILS 64.2 %; NEUTROPHILS ABSOLUTE 3.56 10/3/uL (2.02-8.40); PLATELET COUNT 158 10/3/uL (150-400); RED CELL COUNT 4.05 10/6/uL (4.7-6.1); WHITE BLOOD CELLS 5.6 10/3/uL (4.5-10.5)
[2016-10-14 05:37] LABS: MANUAL DIFF NO %
[2016-10-14 05:56] LABS: A/G RATIO 0.8 (0.7-1.9); ALKALINE PHOSPHATASE 110 U/L (45-117); CALCIUM, SERUM 8.3 MG/DL (8.5-10.4); CHLORIDE, SERUM 103 MMOL/L (96-112); CO2 (CARBON DIOXIDE) 28 MMOL/L (24-34); GFR AFRICAN AMERICAN 11 ML/MIN (>=60); GFR NON AFRICAN AMERICAN 10 ML/MIN (>=60); GLOBULIN 3.6 G/DL (2.5-4.1); GLUCOSE, SERUM 87 MG/DL (60-99); POTASSIUM, SERUM 3.8 MMOL/L (3.5-5.3); SGOT(AST) 27 U/L (5-40); SGPT(ALT) 21 U/L (5-65); SODIUM, SERUM 139 MMOL/L (135-148); TOTAL BILIRUBIN 0.6 MG/DL (0-1.2); TOTAL PROTEIN 6.6 G/DL (6.0-8.5)
[2016-10-14 05:57] LABS: BUN (BLOOD UREA NITROGEN) 16 MG/DL (6-23); CREATININE 6.33 MG/DL (0.70-1.30)
[2016-10-15 07:49] LABS: BASOPHILS 0 %; EOSINOPHILS 7.5 %; EOSINOPHILS ABSOLUTE 0.33 10/3/uL (0.0-0.53); HEMATOCRIT 30.8 % (40.0-51.0); HEMOGLOBIN 10.3 g/dL (13.6-17.8); IMMATURE GRANULOCYTES 0.2 %; IMMATURE GRANULOCYTES ABSOLUTE 0.01 10/3/uL (0.0-0.11); LYMPHOCYTES 21.3 %; LYMPHOCYTES ABSOLUTE 0.94 10/3/uL (0.67-4.30); MANUAL DIFF NO %; MEAN CORPUS HGB CONC 33.4 g/dL (32.0-36.0); MEAN CORPUSCULAR HEMOGLOB 27.6 pg (26.0-34.0); MEAN CORPUSCULAR VOLUME 82.6 fL (80-100); MEAN PLATELET VOLUME 11.1 fL (9.2-13.0); MONOCYTES 10.2 %; MONOCYTES ABSOLUTE 0.45 10/3/uL (0.21-1.20); NEUTROPHILS 60.8 %; NEUTROPHILS ABSOLUTE 2.69 10/3/uL (2.02-8.40); PLATELET COUNT 132 10/3/uL (150-400); RBC DISTRIBUTION WIDTH 16.8 % (12.0-16.0); RED CELL COUNT 3.73 10/6/uL (4.7-6.1); WHITE BLOOD CELLS 4.4 10/3/uL (4.5-10.5)
[2016-10-15 08:09] LABS: ALBUMIN 2.9 G/DL (3.5-5.0); BUN (BLOOD UREA NITROGEN) 26 MG/DL (6-23); CHLORIDE, SERUM 101 MMOL/L (96-112); CO2 (CARBON DIOXIDE) 29 MMOL/L (24-34); CREATININE 8.76 MG/DL (0.70-1.30); GFR AFRICAN AMERICAN 7 ML/MIN (>=60); GFR NON AFRICAN AMERICAN 6 ML/MIN (>=60); GLUCOSE, SERUM 94 MG/DL (60-99); PHOSPHORUS, SERUM 5.2 MG/DL (2.5-4.5); POTASSIUM, SERUM 3.8 MMOL/L (3.5-5.3); SODIUM, SERUM 139 MMOL/L (135-148)
[2016-10-15] MEDS ORDERED: NORCO1 TA1 PO (13:23)
[2016-10-15] MEDS ORDERED: LOM PO (13:24)
== END 2016-10-15 17:20 | disposition home or self-care (01) | DRG 329 ==
LOC: ER 14:19 → MIC 19:30 → 2SO 10-07 16:02 → MIC 10-12 05:13 → 2SO 10-13 14:43
PROVIDERS: Emergency Medicine; Internal Medicine Nephrology; Nurse Practitioner; Registered Nurse; Surgery
PROC: 0DT80ZZ Resection of Small Intestine, Open Approach (ICD-10-PCS; principal; 2016-10-03)
PROC: 0DN80ZZ Release Small Intestine, Open Approach (ICD-10-PCS; 2016-10-03)
PROC: 0DNW0ZZ Release Peritoneum, Open Approach (ICD-10-PCS; 2016-10-03)
PROC: 30233N1 Transfusion of Nonautologous Red Blood Cells into Peripheral Vein, Percutaneous Approach (ICD-10-PCS; 2016-10-06)
DX: K55.039 Acute (reversible) ischemia of large intestine, extent unspecified (principal); N18.6 End stage renal disease; T86.12 Kidney transplant failure; I12.0 Hypertensive chronic kidney disease with stage 5 chronic kidney disease or end stage renal disease; D69.6 Thrombocytopenia, unspecified; N26.9 Renal sclerosis, unspecified; K66.0 Peritoneal adhesions (postprocedural) (postinfection); I12.9 Hypertensive chronic kidney disease with stage 1 through stage 4 chronic kidney disease, or unspecified chronic kidney disease; G40.909 Epilepsy, unspecified, not intractable, without status epilepticus; R00.0 Tachycardia, unspecified; M08.00 Unspecified juvenile rheumatoid arthritis of unspecified site; K46.9 Unspecified abdominal hernia without obstruction or gangrene; Z99.2 Dependence on renal dialysis; Z90.49 Acquired absence of other specified parts of digestive tract
CPT/HCPCS: 36415; 71010; 74020; 74150; 74174; 74176; 74270; 80053; 80069; 80202; 81001; 82150; 82330; 83605; 83690; 83735; 84145; 85025; 86850; 86900; 86901; 86920; 87040; 87077; 87150; 87186; 87493; 87493-59; 87641; 88307; 93005; 96374; 97162-GP; 97164-GP; 97165-GO; 99285; A9270-GY; C9113; G0257; G8978-CK-GP; G8979-CJ-GP; J0360; J0692; J0885; J1170; J1885; J1956; J2250; J2405; J2550; J2710; J3010; J3370; J3475; P9016; P9045; Q9967